=== PATIENT | male | born 2000 | race Caucasian/White ===

== ENCOUNTER 2022-02-06 13:54 | Emergency (ER) | payer OTHER, SELFPAY ==
--- NOTE | ~2022-02-06 | XR_ITS ---
EXAMINATION: XR KNEE, LEFT CLINICAL INFORMATION: Injury left knee COMPARISON: None TECHNIQUE: Four views of the left knee. FINDINGS: Bones and soft tissues are normal. No fracture or joint effusion. Alignment is anatomic. Joint spaces are well maintained. No abnormal soft tissue calcification. XR/XR knee LT 4V IMPRESSION: Normal left knee.
[2022-02-06 14:41] VITALS: BP 138/68; PULSE 82; RESP 16; TEMP 36.6; O2SAT 98; BMI 18.6
--- NOTE | 2022-02-06 15:41 | ED.LOWEXIN ---
HPI - Extremity Injury (Lower) General Chief Complaint: Extremity Injury, Lower Stated Complaint: possible fractured left knee Time Seen by Provider: 02/06/22 15:38 History of Present Illness HPI Narrative: patient is a 21-year-old male's complaining of pain to the left knee. There is no trauma. Patient claims he was working and then subsequently felt a possible pop. He claims he lifted something. Patient denies any calf swelling. Denies any knee swelling. Pain worse with movement. Patient from home. No systemic complaints. No history of blood clots. No trauma directly to the knee. Related Data Previous Rx's Medication Instructions Recorded ibuprofen 400 mg tablet 400 mg PO Q6H PRN pain #20 tabs 02/06/22 Allergies Allergy/AdvReac Type Severity Reaction Status Date / Time No Known Allergies Allergy Verified 02/06/22 14:40 [No Known Allergies*] Review of Systems Review of Systems: No fever no chills no chest pain or shortness of breath no systemic complaints Yes all other systems are reviewed and are negative [facility] Past Medical History Attestation statement: The following information was validated with the patient. [facility] Narrative: Appearance: Alert. Oriented X3. No acute distress. Eyes: Pupils equal, round and reactive to light. ENT: Pharynx normal. Neck: Normal inspection. Neck supple. No lymph nodes noted. No crepitus CVS: Normal heart rate and rhythm. Pulses normal. Normal S1 and S2 Respiratory: No respiratory distress. Breath sounds normal. No Wheezing. No rales Abdomen: Soft and nontender. No rigidity. No distention. good BS x4 Skin: Skin warm and dry. Normal skin color. Normal skin turgor. Extremities: examination of the left knee showed there is no gross knee effusion noted. There is no tenderness on palpation of the patella. No tenderness on palpation of the medial or lateral collateral ligament. There is no calf tenderness elicited on palpation. Calf sizes are equal bilaterally. Distal pulses intact sensation intact patient ambulated with normal gait. Neuro: Oriented X 3. No motor deficit. No sensory deficit. Moving all extermities. No slurred speech Social History Social History Advance Directives: No Advance Directives Information Provided: No Physical Exam Vital Signs: Vital Signs: Last Vital Signs Temp 98 F 02/06/22 14:41 Pulse 82 02/06/22 14:41 Resp 16 02/06/22 14:41 BP 138/68 02/06/22 14:41 Pulse Ox 98 02/06/22 14:41 O2 Del Method 02/06/22 14:41 BMI result Body Mass Index 18.6 MDM - Extremity Injury (Lower) MDM Narrative Medical decision making narrative: X-ray showed no acute fracture. Patient ambulates without any distress. Will discharge patient home. Motrin for pain for now. Close follow-up on an outpatient basis. Discharge Plan Discharge Clinical Impression: Knee sprain Patient Disposition: Home, Self-Care Instructions: Knee Sprain (ED) Additional Instructions: Off from work for 1 day Prescriptions: New ibuprofen 400 mg tablet 400 mg PO Q6H PRN (Reason: pain) Qty: 20 0RF Referrals: Dominik Salgado MD [Physician] -
[2022-02-06 16:04] VITALS: BP 116/69; PULSE 78; RESP 18; O2SAT 100
== END 2022-02-06 16:12 | disposition home or self-care (01) ==
PROVIDERS: Emergency Provider Emergency Medicine Emergency Medical Services
DX: S83.92XA Sprain of unspecified site of left knee, initial encounter (principal); X50.9XXA Other and unspecified overexertion or strenuous movements or postures, initial encounter; Y93.9 Activity, unspecified; Y92.9 Unspecified place or not applicable; Y99.0 Civilian activity done for income or pay
CPT/HCPCS: 73564; 99283; 99284